=== PATIENT | female | born 1970 ===

== ENCOUNTER 2018-11-17 07:46 | Observation (INO) ==
--- NOTE | 2018-11-08 20:55 | PAT Medication Instructions ---
Medication Instructions Date of Service November 08, 2018 Home Medications multivitamin,vz-ulko-xuyboiwz tablet 1 tab PO QAM calcium carbonate-vitamin D3 600 mg (1,500 mg)-400 unit capsule 1 cap PO QAM DO NOT take the morning of surgery multivitamin,no-aqib-mpkvahmm tablet 1 tab PO QAM calcium carbonate-vitamin D3 600 mg (1,500 mg)-400 unit capsule 1 cap PO QAM Other Notes If you have any questions please call us at [phone] or [phone] or [phone] or [phone]
--- NOTE | 2018-11-09 10:59 | Anesthesiology Consultation ---
Date of Service November 09, 2018 Assessment & Plan (1) Encounter for pre-operative examination: - Check test AM DOS Chart Review Chart Review: Pending: Refer to Additional Notes / Consult section (pending preop testing (labs, CXR)) and Patient seen in Pre Admission Testing Teaching & Discussion Pre-Anesthesia Teaching/Discussion Notes: Instructed NPO after midnight before surgery,except medications with 15 cc of water. Medication instructions provided according to the PAT guidelines. History Surgery Operation Date: 11/17/18 11:40 Proposed Procedures p Right Breast Mastectomy with Right [place] Lymph Node Biopsy, Left Breast Excisional Biopsy with Wire Localization - Roni Richardson, , FACS Height/Weight Height: 5 ft 3 in Weight: 66 kg Allergies Allergy/AdvReac Type Severity Reaction Status Date / Time No Known Drug Allergies Allergy Verified 11/05/18 12:06 Medications Home Medications Medication Instructions Recorded Confirmed Last Taken multivitamin,bz-qgwz-xgsykyom 1 tab PO QAM 07/16/18 11/05/18 Unknown tablet calcium carbonate-vitamin D3 600 1 cap PO QAM cap 10/19/18 11/05/18 Unknown mg (1,500 mg)-400 unit capsule Past Medical History Medical History Breast cancer, right breast Diagnosed 09/27/18 Exercise / Class Metabolic Activity II 4-5 Yardwork/Stairs/Walk up hill Past Family History Family History Mother Prediabetes Father Diabetes Chronic kidney failure Brother No problems noted. Sister No problems noted. Sister No problems noted. Sister No problems noted. Sister No problems noted. Past Surgical History Surgical History No history of previous surgery Past Anesthesia History No Family Hx of Anesthesia Complications Patient: GA naive History of PONV No Hx of Motion Sickness Social History Smoking Status: Never smoker Do You Dip or Chew Tobacco: No Hx Alcohol Use: Yes Alcohol type: beer and hard liquor alcohol intake frequency: a few times a week Hx Substance Use: No Review of Systems Occasional reflux. Patient denies chest pain, shortness of breath, dyspnea on exertion, cough, wheezing, palpitations. Physical Exam Vital Signs VITALS BP 103/66 P 74 TEMP 98.5 SP02 100%RA RESP 14 PHYSICAL Full neck and c-spine range of motion. Full TMJ range of motion. TMD 3 finger breaths Mallampati Score 1 Dentition: intact, crowns on molars Lungs: clear throughout to auscultation Cardiac: regular rate and rhythm, no murmurs noted Spine: normal Extremities: no edema
[2018-11-09 11:21] LABS: Basophils # (auto) 0.02 K/uL (0-0.2); Basophils % (auto) 0.3 %; Eosinophils # (auto) 0.55 K/uL (0-0.5); Eosinophils % (auto) 8.4 %; Hematocrit (blood only) 42.1 % (37-47); Hemoglobin 14.2 g/dL (12.0-16.0); Immature Granulocytes # (auto) 0.01 K/uL (0.00-0.02); Immature Granulocytes % (auto) 0.2 %; Lymphocytes # (auto) 2.16 K/uL (1.2-3.4); Lymphocytes % (auto) 33.2 %; Mean Corpuscular Hemoglobin 31.4 pg (25-34); Mean Corpuscular Hgb Conc 33.7 g/dL (32-36); Mean Corpuscular Volume 93.1 fL (80-100); Mean Platelet Volume 10.3 fL (7.4-10.4); Monocytes # (auto) 0.44 K/uL (0.11-0.59); Monocytes % (auto) 6.8 %; Neutrophils # (auto) 3.33 K/uL (1.4-6.5); Neutrophils % (auto) 51.1 %; Platelet Count 268 K/uL (130-400); RDW Coefficient of Variation 12.7 % (11.5-14.5); RDW Standard Deviation 43.3 fL (36.4-46.3); Red Blood Count 4.52 M/uL (4.2-5.4); White Blood Count 6.51 K/uL (4.8-10.8)
--- NOTE | 2018-11-09 11:30 | XRay Report ---
XR chest Pre-admission PA/Lat CLINICAL HISTORY: Preoperative chest COMPARISON STUDY: No previous studies for comparison. FINDINGS: The cardiac and mediastinal contours are normal. There is no evidence of focal pulmonary co nsolidation. There is no evidence of failure. No pleural effusions are visualized.[ IMPRESSION: No active disease in the chest. Electronically signed by: Kai Ann M.D. 11/09/2018 11:28 AM
[2018-11-09 13:06] LABS: Albumin Level 3.7 gm/dl (3.4-5.0); BUN Creatinine Ratio 19.4 (10-20); Bilirubin Direct 0.1 mg/dl (0-0.2); Calcium 9.2 mg/dl (8.5-10.1); Creatinine Clr Calc Pharmacy 85.8 ml/min; Est GFR (African American) 111.8; Est GFR (Non-African American) 96.5
[2018-11-09 13:09] LABS: Bilirubin,Total 0.3 mg/dl (0.2-1); Total Protein 7.1 gm/dl (6.4-8.2)
[~2018-11-17 07:46] MED LIST: CEFAZOLIN 2000MG 2,000 MG/15 ML SYR IV SCH; LR 15ML/HR IV SCH
--- NOTE | 2018-11-17 10:08 | Nuclear Medicine Report ---
LYMPHOSCINTIGRAPHY CLINICAL HISTORY: Right-sided breast cancer. PROCEDURE: Using standard sterile technique, 4 intradermal periareolar and one deep injection of 0.49 2 mCi of Lymphoseek was placed in the right breast. The patient tolerated the procedure well. There w ere no immediate complications. 2 post procedure images were acquired, and a right axillary lymph nod e was marked on the 20 minute image for the surgeon. The patient was subsequently transported to the surgical suite. IMPRESSION: 1. Injection of 0.492 mCi of Lymphoseek in the right breast. 2. A right axillary lymph node was marked for the surgeon. Electronically signed by: Daniele Irene M.D. 11/17/2018 10:07 AM
[2018-11-17] MEDS ORDERED: ePHEDrine sulfate 50 MG/ML AMP IV PRN (10:36)
[2018-11-17] MEDS ORDERED: ONDANSETRON INJ 2 MG/ML 2 ML VIAL IV PRN ×2 (10:36→14:25)
[2018-11-17] MEDS ORDERED: fentaNYL citrate 100 MCG/2 ML VIAL IV PRN (10:36)
[2018-11-17] MEDS ORDERED: ATROPINE SULFATE 0.1 MG/ML 10ML SYR IV PRN (10:36)
--- NOTE | 2018-11-17 10:38 | History & Physical Bridge Note ---
Date of Service November 17, 2018 History & Physical Bridge Note I have examined the patient, reviewed the History & Physical and in the interval since the performance of the History & Physical I have noted the following changes of clinical significance: wire localization on the left, reviewed with radiology. [place] lymph node injection on right, lymphoscintography shows right axillary lymph nodes. No other changes noted
[2018-11-17] MEDS ORDERED: PROPOFOL IV EMULSION 10 MG/ML 20 ML VIAL IV ONE (10:45)
[2018-11-17] MEDS ORDERED: LIDOCAINE HCL 2% 2 ML VIAL/AMP(20MG/ML) INFIL ONE (10:45)
[2018-11-17] MEDS ORDERED: MIDAZOLAM HCL 1 MG/ML 2ML VIAL ONE (10:46)
[2018-11-17] MEDS ORDERED: fentaNYL citrate 100 MCG/2 ML VIAL ONE (10:46)
[2018-11-17] MEDS ORDERED: BUPIVACAINE 0.5 % 5 MG/1 ML MPF 30ML VIAL ONE (11:08)
[2018-11-17] MEDS ORDERED: DEXAMETHASONE SOD INJ 4 MG/ML VIAL ONE ×2 (11:20→11:45)
[2018-11-17] MEDS ORDERED: ARTIFICIAL TEARS OP OINT 3.5 GM TUBE ONE (11:33)
[2018-11-17] MEDS ORDERED: ePHEDrine sulfate 50 MG/ML SYR ONE (12:47)
[2018-11-17] MEDS ORDERED: ONDANSETRON INJ 2 MG/ML 2 ML VIAL ONE (12:47)
--- NOTE | 2018-11-17 13:03 | Operative Report ---
PG Post Operative Report Pre & Post Diagnosis Operation Date: 11/17/18 11:00 Pre-Op Diagnosis: Right breast lobular carcinoma, left breast radial scar Postoperative diagnosis: Right breast lobular carcinoma, left breast radial scar I personally identified the patient: Yes Procedure Operation Date: 11/17/18 11:00 Actual Procedures p Right Breast Mastectomy with Right [place] Lymph Node Biopsy, Left Breast Excisional Biopsy with Wire Localization(Bilateral) - Roni Richardson DO, FACS Surgeon Roni Richardson DO, HOA Special Education Associate Abhishek Culp; Bren Yip Estimated Blood Loss 10 Findings Consistent with Post-Op Diagnosis Left breast needle localization performed, imaging as specimen confirmed removal of clip, wire, and visualized abnormality. Right breast sentinel lymph node biopsy performed, lymph node measured 1600 ex vivo, remainder of axilla silent. Right breast mastectomy performed, good hemostasis. Specimens Left breast biopsy Right axillary sentinel lymph node Right mastectomy Drains 10 mm TOYA drain right breast flap Anesthesia Type General Complications none Disposition Accompanied Patient To Recovery: No Disposition: Recovery Room Indications 48-year-old female with newly diagnosed multicentric right breast lobular carcinoma not amenable to this breast conservation therapy, also with left breast radial scar. Plan for right breast mastectomy, right axillary sentinel lymph node biopsy, and left breast excisional biopsy with needle localization. The risks of the procedure were discussed, all questions were answered, and the patient agreed to proceed with surgery as planned. Description of Procedure The patient had a localization wire placed on the left side in radiology prior to surgery. The films were reviewed for incisional planning. Patient had sentinel lymph node injection on the right and lymphoscintigraphy was performed prior to the procedure and identified 1-2 sentinel lymph nodes. The axilla was examined with a gamma probe and confirmed uptake into the axilla. The patient was properly identified, consented, and taken to the operating room where she was placed in the supine position. General endotracheal anesthesia was induced. SCDs and a safety belt were placed. Preoperative antibiotics were administered. The patient's bilateral chest was prepped and draped in the standard sterile fashion. Surgical timeout was performed and all parties were in agreement that this was the correct patient and procedure to be performed and we continued as planned. A transverse infra-areolar incision was made on the left breast and deepened down through the subcutaneous tissue with electrocautery. Flaps were raised in all directions. The needle and wire were delivered into the incision. The breast mass was circumferentially dissected, excised, and passed off the table as specimen. The specimen was oriented. A mammogram was performed of the specimen and reviewed by the radiologist and confirmed excision of the wire, clip, and previously imaged abnormality. The wound was irrigated and hemostasis was confirmed. The skin was closed with interrupted 3-0 Vicryl deep dermal sutures, followed by 4-0 Monocryl running subcuticular suture. Dermabond was placed over the wound. An incision was made in the right axilla in a natural skin crease and deepened down to subcutaneous tissue with electrocautery. The gamma probe was used to localize the sentinel lymph node which read 1400 in vivo, and 1600 ex vivo. The axilla was reexamined with the gamma probe and was silent. The wound was packed and attention turned to the breast lesion. A transversely oriented elliptical incision was made that encompassed the nipple-arreolar complex on the right. Flaps were raised to the clavicle superiorly, the sternum medially, and the rectus sheath inferiorly. Care was taken to leave a small amount of subcutaneous fat under the flaps to maintain good perfusion. The breast was then taken off the chest wall including the pectoralis fascia from medial to lateral. We then continued the dissection along the lateral border of the pectoralis muscle until we came to the serratus muscle. We completed the dissection and the specimen was removed. The specimen was oriented. The wound was irrigated and hemostasis was confirmed. The flaps appeared viable. A 10 mm TOYA drains was placed underneath the mastectomy flap. These exited inferior to the incision and were secured into place with 2-0 nylon sutures. The skin was closed with interrupted 3-0 Vicryl deep dermal sutures, followed by 4-0 Monocryl running subcuticular suture. Dermabond was placed over the wound. The patient was extubated in the operating room and taken to the PACU where she recovered without apparent incident. All sponge, instrument and needle counts were correct at the conclusion of the procedure. The patient tolerated the procedure well. The physician's assistants were critical in positioning the patient, prepping and draping, retraction exposure, removal of the specimens, closure the incisions, placement of the dressings. I attest to the content of the Intraoperative Record and any orders documented therein. Any exceptions are noted below.
--- NOTE | 2018-11-17 14:00 | Anesthesiology Progress Note ---
Date of Service November 17, 2018 Anesthesia Post Procedure Vital Signs Vital Signs: Temp Pulse Pulse Resp BP Pulse Ox 11/17/18 13:55 98.6 F 90 16 115/75 98 11/17/18 13:45 88 17 112/75 99 11/17/18 13:35 91 H 16 114/75 100 11/17/18 13:25 98.4 F 98 H 18 118/75 100 11/17/18 10:41 98.8 F 79 16 120/79 100 Transfer of Care Handoff Completed per policy Notes Mental Status: alert / awake / arousable and participated in evaluation Patient Amnestic to Procedure: Yes Nausea / Vomiting: adequately controlled Pain: adequately controlled Airway Patency, RR, SpO2: stable & adequate BP & HR: stable & adequate Hydration State: stable & adequate Anesthetic Complications: no major complications apparent and Pt Satisfied with anesthetic care
[2018-11-17] MEDS ORDERED: OXYCODONE/ACETAMINOPHEN 5mg/325mg TAB PO PRN ×2 (14:25)
[2018-11-17] MEDS ORDERED: MoRPHine SULFATE 10 MG/ML CARP/VIAL IV PRN (14:25)
[2018-11-17] MEDS ORDERED: MoRPHine SULFATE 2 MG/ML CARP IV PRN (14:25)
[2018-11-17] MEDS ORDERED: MoRPHine SULFATE 4 MG/ML 1 ML CARP\\VIAL IV PRN (14:25)
[2018-11-17] MEDS ORDERED: LACTATED RINGER'S 1,000 ML IV SCH (14:25)
--- NOTE | 2018-11-17 15:11 | Mammography Report ---
NEEDLE LOCALIZATION LEFT BREAST: 11/17/2018 CLINICAL HISTORY: 48-year-old woman with a biopsy-proven radial scar in the central left breast. She presents for preoperative needle and wire localization prior to surgical excision in the left breast, at the same time as right mastectomy for multicentric carcinoma. COMPARISON: Comparison is made to exams dated: 10/26/2018 ultrasound, 10/15/2018 breast MRI, and 019 mammogram - [facility]. PATIENT CONSENT: The risks of the procedure were explained to the patient and informed consent was ob tained. A specific risk of this procedure is nontarget localization. The patient denied eating or d rinking anything this morning that would preclude anesthesia. No allergy to lidocaine. A timeout wa s performed in the left breast was confirmed as a site for preoperative localization. PROCEDURE DESCRIPTION: Prior left breast imaging was reviewed and the hourglass shaped biopsy marker and focal area of architectural distortion in the central left breast are the intended target for pre operative localization. It should be noted that on the post procedure mammogram after tomosynthesis guided biopsy, the biopsy marker was displaced superiorly from the biopsy distortion. On the pre-loc alization view today, it is now inferior to the distortion seen at 12:00 middle depth. Plan to local ize the distortion and also hope to include the biopsy marker along the tract of the needle. With the patient in the standing position, the left breast was placed in CC from below compression. A tomosynthesis image was obtained which demonstrates the hourglass shaped biopsy marker and subtle a deidra of architectural distortion along the sagittal plane of the nipple. The distortion was targeted utilizing an alphanumeric grid. The skin of the inferior left breast was cleansed with alcohol. 1% buffered Lidocaine without epinephrine was administered as local anesthesia. A 7.5cm Palmer II needl e and wire combination was inserted into the breast. The breast was repositioned to lateralmedial c ompression and another tomosynthesis view was obtained which demonstrates the needle and wire posteri or to the intended biopsy marker and area of distortion. The breast was then repositioned to CC from below positioning and another tomosynthesis fire investigation lieutenant view including the use of an alphanumeric grid and 7.5 cm Palmer 2 needle and wire combination was inserted into the breast. Optimal positioning was then confirmed in the lateralmedial position and the wire was locked in place, leaving both the need le and wire within the breast, as per surgeon's preference. The entire procedure including approach and needle length were discussed with the operating surgeon prior to surgery. The patient tolerated the procedure well and there was no immediate complication. She was sent to the operating room in sa tisfactory condition. A surgical specimen radiograph was obtained which demonstrates the localizing needle and wire, hourgl ass shaped biopsy marker and numerous calcifications throughout the left breast specimen. The specim en radiograph is not 3D so difficult to assess for the distortion but based on landmarks it appears t o be within the specimen. IMPRESSION: NEEDLE LOCALIZATION Status post preoperative needle and wire localization for a biopsy-proven radial scar in the 12:00/ce ntral left breast, as above. Final surgical pathology is pending. Alivia Chavarria M.D. ay/:11/17/2018 12:28:32 Attending Technologist: RT Adam,R, M, [facility] History Card Clerk: RT Lata(R)(M), [facility]; RT Betito(R)(M ), [facility]
[2018-11-17] MEDS: CEFAZOLIN 2000MG 2,000 MG/15 ML SYR IV SCH (19:38)
[2018-11-18] MEDS: CEFAZOLIN 2000MG 2,000 MG/15 ML SYR IV SCH (04:59)
--- NOTE | 2018-11-18 07:58 | Anesthesiology Progress Note ---
Date of Service November 18, 2018 Anesthesia Post Procedure Vital Signs Vital Signs: Temp Pulse Pulse Resp BP BP Pulse Ox 11/18/18 06:59 36.9 C 75 18 106/67 98 11/18/18 04:10 36.9 C 70 18 101/64 97 11/17/18 23:15 36.7 C 75 18 93/59 L 96 11/17/18 20:43 36.8 C 75 18 108/65 96 11/17/18 18:00 36.9 C 90 19 116/73 96 11/17/18 17:10 36.9 C 85 18 100/63 97 11/17/18 16:16 36.8 C 82 19 116/70 97 11/17/18 14:48 36.4 C L 96 H 19 105/70 99 11/17/18 14:39 36.8 C 84 16 99/60 L 98 11/17/18 14:10 37.1 C 92 H 16 119/75 96 11/17/18 14:05 87 20 111/72 100 11/17/18 13:55 37 C 90 16 115/75 98 11/17/18 13:45 88 17 112/75 99 11/17/18 13:35 91 H 16 114/75 100 11/17/18 13:25 36.9 C 98 H 18 118/75 100 11/17/18 10:41 37.1 C 79 16 120/79 100 Pain Intensity Bilateral Breast: Pain Intensity: 3 Notes Mental Status: alert / awake / arousable and participated in evaluation Patient Amnestic to Procedure: Yes Nausea / Vomiting: adequately controlled Pain: adequately controlled Airway Patency, RR, SpO2: stable & adequate BP & HR: stable & adequate Hydration State: stable & adequate Anesthetic Complications: no major complications apparent and Pt Satisfied with anesthetic care
--- NOTE | 2018-11-18 08:50 | Surgery Progress Note ---
Date of Service November 18, 2018 Assessment & Plan (1) Lobular breast cancer: POD#1 right breast mastectomy and sentinel node biopsy, and left breast biopsy Tolerating advances in diet, currently eating regular for breakfast Pain is well controlled Incisions c/d/i and TOYA serosang. Voiding spontaneously and ambulating independently Will ask RN's to provide TOYA Drain teaching Plan on discharge to home today with instructions to follow up in clinic in 1-2 weeks Subjective No acute events overnight. Pain is well controlled. She is hungry and currently tolerating regular diet for breakfast. Physical Exam Physical Exam: awake/alert/sitting up in bed eating breakfast Respiratory: normal respiratory effort Chest (Breasts): Additional Comments: TOYA drain with 105cc in 24 hours, serosanguineous. right breast + axillary and left chest incisions are all c/d/i with dermabond overtop. Results & Data Vital Signs (Past 12 Hours) Vital Signs Temp Pulse Resp BP Pulse Ox 11/18/18 06:59 36.9 C 75 18 106/67 98 11/18/18 04:10 36.9 C 70 18 101/64 97 11/17/18 23:15 36.7 C 75 18 93/59 L 96 PG Care Time/CCT Total # of Minutes Spent Total Time Spent with Patient: Total time spent is greater than 50% in coordination of care (as documented) at patient's floor/unit and/or counseling patient:
--- NOTE | 2018-11-18 09:52 | Discharge Summary ---
Date of Service November 18, 2018 Principal Diagnosis Lobular breast cancer of right breast Radial scar- Left Breast Discharge Exam awake/alert/conversational Constitutional well developed and well nourished; no acute distress Respiratory normal respiratory effort; no respiratory distress Cardiovascular Rate/Rhythm: regular rate Chest (Breasts) Additional Comments: TOYA drain in R breast is serosanguineous. Right breast incision, Right axillary incision, and Left breast incisions are c/d/i with dermabond overtop. Discharge Data Allergies Allergy/AdvReac Type Severity Reaction Status Date / Time No Known Drug Allergies Allergy Verified 11/17/18 10:28 Procedures Performed Operation Date: 11/17/18 11:00 Actual Procedures s Left Breast Excisional Biopsy with Wire Localization(Bilateral) - Roni Richardson DO, FACS p Right Breast Mastectomy with Right [place] Lymph Node Biopsy,(Left) - Roni Richardson DO, FACS Hospital Course (1) Lobular breast cancer: This is a 48y F with a diagnosis of lobular breast cancer of the right breast and a radial scar in left breast who presents to [facility] on 11/17/18 for a planned right mastectomy with sentinel node biopsy and left breast biopsy. The patient tolerated the procedure well, see operative report for full details. The patient recovered in the PACU and was transferred to the observation unit in stable condition for overnight monitoring. Post operatively the patient's diet was advanced from liquids to regular of which she tolerated well. Pain remained well controlled throughout. She was voiding spontaneously and ambulating. A TOYA drain was placed in the right breast post-operatively which remained serosanguineous. TOYA drain teaching was provided to the patient. All surgical incisions were clean/dry/intact with dermabond overtop. On POD#1 (11/18/18) the patient clinically looked and felt well and was stable for discharge to home with TOYA drain in place. She was instructed to follow up in clinic as an outpatient for drain removal and post operative follow up. Total Time Total Time Spent Total Time Spent (In Minutes): 15 Discharge Plan Discharge Items Patient Disposition: Home - Self-Care Reason For Visit: RT BREAST CA, LT BREAST RADIAL SCAR W/HOSP LOC/NM Discharge Diagnosis: right breast mastectomy, right sentinel lymph node biopsy, and left breast biopsy Activity: Per Instructions section Lifting: No more than 10 pounds Bathing Comment: you may shower starting today-11/18/18, keep drain dry as possible Exercise/Sports: Wait until after follow-up appointment Driving/Machine Use: Resume 3 days after discharge Non-emergency contact: Surgeon Call non-emergency contact if: you have any medication questions, your symptoms worsen, your pain is not controlled, your pain is worsening, you have a fever, your temperature is above 101.5, your wound has increased redness, your wound has increased drainage and your wound pain has increased Follow-up/Referrals: Theo Hinojosa III, CRNP [Primary Care Provider] - Roni Richardson, HOA LEMUS [Physician] - (Please schedule follow up in clinic within 1-2 weeks. You may call the office sooner if you have any questions/concerns.) Diet: Regular Addtl Attending Provider Instructions: Empty drain 2-3 times daily as needed and record daily total, the drain can be removed when drainage is less than 25 cc over 24 hours Pending Studies at Discharge: No Stand-Alone Forms: My [facility] Medications and DC Order Prescriptions: New oxycodone-acetaminophen [Percocet] 5-325 mg tablet 1 - 2 tab PO Q4H PRN (Reason: pain, initial therapy, max 8 daily) Qty: 15 RF: 0 Continued calcium carbonate-vitamin D3 600 mg(1,500mg) -400 unit capsule 1 cap PO QAM RF: 0 Complete Multivitamin tablet 1 tab PO QAM RF: 0 Discharge Orders: Discharge Order (Routine); Ordered 11/18/18 Ordered By: Bren Yip Admission Data Admit Date/Time: 11/17/18 13:22 Attending Provider: Roni Richardson Admit Provider: Roni Richardson Primary Care Provider: Theo Hinojosa III
== END 2018-11-18 11:05 | disposition home or self-care (01) ==
LOC: ASU 07:46 → 3W 07:46
DX: C50.911 Malignant neoplasm of unspecified site of right female breast